=== PATIENT | female | born 1935 | race Caucasian/White ===

== ENCOUNTER 2018-04-18 11:45 | Inpatient (IN) | payer MEDICARE | END 2018-04-21 12:45 | disposition home or self-care (01) | LOC: ER 11:45 → PCU 3S 04-19 07:00 → ED HOLD 14:36 ==

== ENCOUNTER 2021-01-11 06:56 | Inpatient (IN) | payer MEDICARE ==
[2021-01-04 11:49] LABS: BASOPHILS # (AUTO) 0.1 X10'3 (0-0.2); BASOPHILS % (AUTO) 1.1 % (0-1); EOSINOPHILS # (AUTO) 0.2 X10'3 (0-0.9); LYMPHOCYTES # (AUTO) 1.5 X10'3 (1.1-4.8); LYMPHOCYTES % (AUTO) 30.6 % (21-51); MEAN CORPUSCULAR HEMOGLOBIN 31.8 PG (27.0-31.0); MEAN CORPUSCULAR HGB CONC 34.1 g/dL (33.0-36.5); MEAN CORPUSCULAR VOLUME 93.1 FL (78-98); MEAN PLATELET VOLUME 7.7 FL (7.4-10.4); MONOCYTES # (AUTO) 0.4 X10'3 (0-0.9); MONOCYTES % (AUTO) 8.1 % (2-12); NEUTROPHILS # (AUTO) 2.7 X10'3 (1.8-7.7); NEUTROPHILS % (AUTO) 56.2 % (42-75); PRE OP HEMATOCRIT 38.7 % (35.0-45.0); PRE OP HEMOGLOBIN 13.2 g/dL (12.0-16.0); PRE OP PLATELET COUNT 226 X10'3 (140-440); RED BLOOD COUNT 4.16 X10'6 (4.20-5.60); RED CELL DISTRIBUTION WIDTH 13.1 % (11.5-14.5)
[2021-01-04 12:08] LABS: ALBUMIN 3.5 G/DL (3.4-5.0); ALBUMIN/GLOBULIN RATIO 1.1 (1.1-1.5); ALKALINE PHOSPHATASE 70 IU/L (46-116); BLOOD UREA NITROGEN 11 MG/DL (7-18); BUN/CREATININE RATIO 16.9 (6.6-38.0); CALCIUM 8.3 MG/DL (8.5-10.1); CHLORIDE 104 MMOL/L (99-107); CREATININE 0.65 MG/DL (0.40-0.90); PRE OP ALT 13 U/L (30-65); PRE OP ANION GAP 3 (8-16); PRE OP AST 19 U/L (10-37); PRE OP BILIRUB, TOTAL 1.2 MG/DL (0.0-1.0); PRE OP GLUCOSE 92 MG/DL (70-104); PRE OP POTASSIUM 3.6 MMOL/L (3.4-5.1); PRE OP SODIUM 140 MMOL/L (135-145); TOTAL CARBON DIOXIDE 32.6 MMOL/L (24-32); TOTAL PROTEIN 6.8 G/DL (6.4-8.2); eGFR 87 ML/MIN
[2021-01-04 12:14] LABS: HEMOGLOBIN A1C 6.3 % (4.5-6.2)
[2021-01-04 12:19] LABS: PRE OP PROTIME 10.8 SECONDS (9.0-12.0)
[~2021-01-11] VITALS: Ht 152.4 cm; Wt 65.5 kg
[2021-01-11] VITALS (22 sets, daily range): BP systolic 90–166; BP diastolic 36–86
[2021-01-11] MEDS: ringers solution, lacted 1,000 ML IV SCH ×3 (06:33→14:47)
[~2021-01-11 06:56] MED LIST: ATOR20TA66 PO; HYDR-3964 PO; HYDROcodone/acetaminophen 10/325mg tab PO PRN; HYDROmorphone 1 mg/ml syringe IV PRN; HYDROmorphone inj. 0.5 MG/0.5 ML DISP.SYRIN IV PRN; LOSA100T57 PO; PARO10TA85 PO; SODIUM CHLORIDE IV ONE; TIMO5DRO4 EACHEYE; TRANEXAMIC ACID IV ONE; TRAZ-251 PO; VANCOMYCIN INJ 1000 MG in NORMAL SALINE 250ml IV.SOLN IV ONE; acetaminophen 325mg tablet PO ONE; bisacodyl 10mg suppository rectal RC PRN; ceFAZolin 2gm in dextrose, iso 50 ML IV ONE; celeCOXIB 100mg capsule PO ONE; diphenhydrAMINE 25mg capsule PO PRN; famotidine 20mg tablet PO ONE; gabapentin 300mg capsule PO ONE; magnesium hydroxide 30ml (MOM) UD suspension PO PRN; metoclopramide 5 mg/ml inj IV ONE; ondansetron/PF 4mg/2ml inj IV PRN; oxyCODONE SR 10mg (sust. release) tab -2 tabs (20mg) PO ONE
[2021-01-11] MEDS ORDERED: vancomycin 1,000mg inj ONE (07:57)
[2021-01-11] MEDS ORDERED: ROPIVAcaine 0.5% (5mg/ml) 30ml vial ONE (07:57)
[2021-01-11] MEDS ORDERED: ketorolac trometh. 30mg/ml inj. ONE (07:57)
[2021-01-11] MEDS ORDERED: epiNEPHrine 1 mg/ml inj ONE (07:57)
[2021-01-11] MEDS ORDERED: cloNIDine hcl/PF 100mcg/ml inj ONE (07:57)
[2021-01-11] MEDS ORDERED: vancomycin/NS 1 GM ADD-VANTAGE 250 ML IV SCH (08:00)
[2021-01-11] MEDS: ceFAZolin/D5W- 1GM premix 50 ML IV SCH ×2 (08:00→16:59)
[2021-01-11] MEDS: multivitamins, therapeutics tablet PO SCH (08:00)
[2021-01-11] MEDS ORDERED: fentaNYL/PF 50MCG/1 ML 2ML syringe ONE ×2 (08:15→09:14)
[2021-01-11] MEDS ORDERED: midazolam 1 mg/ML 2ml injection ONE (08:15)
[2021-01-11] MEDS ORDERED: ketamine 50mg/5ml syringe ONE (09:07)
[2021-01-11] MEDS ORDERED: HYDROmorphone/PF 0.2 MG/ML SYRINGE IV PRN (09:35)
[2021-01-11] MEDS ORDERED: morphine 2 MG/ML inj. syringe IV PRN (09:35)
[2021-01-11] MEDS ORDERED: ringers solution, lacted 1,000 ML IV SCH (09:35)
[2021-01-11] MEDS ORDERED: ondansetron/PF 4mg/2ml inj IV PRN (09:35)
[2021-01-11] MEDS ORDERED: glycopyrrolate 0.2mg/ml inj ONE (09:37)
[2021-01-11] MEDS ORDERED: neostigmine methylsulfate 1 MG/ML 10ml vial ONE (09:37)
[2021-01-11] MEDS ORDERED: ondansetron/PF 4mg/2ml inj ONE (09:38)
[2021-01-11] MEDS ORDERED: propofol inj 20 ML IV ONE (09:38)
[2021-01-11] MEDS ORDERED: rocuronium 10mg/ml inj IV ONE (09:38)
[2021-01-11] MEDS ORDERED: LIDOcaine 2% (20mg/ml) 5ml vial ONE (09:38)
--- NOTE | 2021-01-11 10:15 | NUR ---
Received from OR via , accompanied by Anesthesiologist and report given by Anesthesiolgist. PATIENT WAKING UP DENIES PAIN, V/S WNL, NEUROCHECKS INTACT, 20G RUEM F/C DRAINING CLEAR YELLOW URINE, SCD ON, МАРИНА DRESSING TO LEFT HIP CDI WITH IMMOBILIZER BRACE TO LLE.
--- NOTE | 2021-01-11 11:55 | NUR ---
PATIENT AWAKE AND RE ORIENTED X4, V/S WNL, NEUROCHECKS INTACT, 20G RUEM F/C DRAINING CLEAR YELLOW URINE, SCD ON, МАРИНА DRESSING TO LEFT HIP CDI WITH IMMOBILIZER BRACE TO LLE. PATIENT TAKEN TO [facility]A WITH ALL BELONGINGS AND REPORT GIVEN TO INOCENCIA TURPIN WHO HAS TAKEN OVER PATIENT CARE.
[2021-01-11] MEDS: gabapentin 300mg capsule PO SCH ×2 (13:00→21:00)
[2021-01-11] MEDS ORDERED: tranexamic acid inj. 650 MG in normal saline 100ml IV soln 100 ML IV ONE (13:15)
[2021-01-11] MEDS: potassium cl 20mEq in 1/2 NS 1,000 ML IV SCH ×3 (14:55→22:55)
--- NOTE | 2021-01-11 18:00 | NUR ---
Problems reprioritized. Patient report given, questions answered & plan of care reviewed with Julia TURPIN.
--- NOTE | 2021-01-11 18:56 | NUR ---
Patient in room [facility]. I have received report from Veronica TURPIN and had the opportunity to ask questions and assume patient care.
[2021-01-11] MEDS: timolol 0.5% ophthalmic solution 5ml bottle EACHEYE SCH (20:00)
[2021-01-11] MEDS: losartan 50mg tablet PO SCH (20:00)
[2021-01-11] MEDS: ascorbic acid 500mg tablet PO SCH (20:00)
[2021-01-11] MEDS: sennosides 8.6mg tablet PO SCH (21:00)
[2021-01-11] MEDS: traZODone 50mg tablet PO SCH (21:00)
[2021-01-11] MEDS: PARoxetine 10mg tablet PO SCH (21:00)
--- NOTE | 2021-01-11 21:00 | NUR ---
Pt has been sleepy since anesthesia from surgery, so kept NPO at this time due to being unable to assess swallow. Oral meds non admin for the time being. Pt responds to stimuli and vital signs are stable.
[2021-01-12] VITALS: BP 105/48
[2021-01-12] MEDS: potassium cl 20mEq in 1/2 NS 1,000 ML IV SCH ×3 (01:07→22:55)
[2021-01-12 06:02] LABS: BASOPHILS % (AUTO) 0.3 % (0-1); EOSINOPHILS % (AUTO) 0.5 % (0-6); HEMATOCRIT 36.1 % (35.0-45.0); HEMOGLOBIN 11.9 g/dl (12.0-16.0); LYMPHOCYTES # (AUTO) 0.7 X10'3 (1.1-4.8); LYMPHOCYTES % (AUTO) 7.4 % (21-51); MEAN CORPUSCULAR HEMOGLOBIN 31.6 PG (27.0-31.0); MEAN CORPUSCULAR HGB CONC 33.1 g/dL (33.0-36.5); MEAN CORPUSCULAR VOLUME 95.4 FL (78-98); MEAN PLATELET VOLUME 8.4 FL (7.4-10.4); MONOCYTES # (AUTO) 0.8 X10'3 (0-0.9); MONOCYTES % (AUTO) 8.1 % (2-12); NEUTROPHILS # (AUTO) 8.2 X10'3 (1.8-7.7); NEUTROPHILS % (AUTO) 83.7 % (42-75); PLATELET COUNT 172 X10'3 (140-440); RED BLOOD COUNT 3.78 X10'6 (4.20-5.60); RED CELL DISTRIBUTION WIDTH 13.4 % (11.5-14.5); WHITE BLOOD COUNT 9.8 X10'3 (4.5-11.0)
--- NOTE | 2021-01-12 06:34 | NUR ---
Problems reprioritized. Patient report given, questions answered & plan of care reviewed with Jo-Ann TURPIN.
[2021-01-12 07:02] LABS: ANION GAP 6 (8-16); CHLORIDE 104 MMOL/L (99-107); POTASSIUM 4.3 MMOL/L (3.5-5.1); SODIUM 140 MMOL/L (135-145)
[2021-01-12] MEDS: timolol 0.5% ophthalmic solution 5ml bottle EACHEYE SCH ×2 (08:00→20:13)
[2021-01-12] MEDS: losartan 50mg tablet PO SCH ×2 (08:00→20:09)
[2021-01-12] MEDS: ascorbic acid 500mg tablet PO SCH ×2 (09:17→20:10)
[2021-01-12] MEDS: aspirin 325mg tablet PO SCH (09:17)
[2021-01-12] MEDS: gabapentin 300mg capsule PO SCH ×3 (09:17→20:11)
[2021-01-12] MEDS: multivitamins, therapeutics tablet PO SCH (09:17)
[2021-01-12] MEDS: atorvastatin 20mg tablet PO SCH (09:17)
[2021-01-12] MEDS: acetaminophen 325mg tablet PO PRN ×2 (10:17→20:14)
[2021-01-12] MEDS ORDERED: normal saline 1000ml 1,000 ML IV ONE (12:35)
--- NOTE | 2021-01-12 13:48 | NUR ---
Joint Surgery Consult: Pt admit s/p L hip surgery this admit per EMR. Pt sleeping during RD visit noted to be sleepy post-op per EMR. Written high protein ed w/ RD contact information left at bedside. Addendum: 01/12/21 at [address] Amended: Links added.
--- NOTE | 2021-01-12 18:30 | NUR ---
Patient in room [facility]. I have received report from Jo-Ann TURPIN and had the opportunity to ask questions and assume patient care.
[2021-01-12 20:00] VITALS: BP 132/43
[2021-01-12] MEDS: celeCOXIB 100mg capsule PO SCH (20:07)
[2021-01-12] MEDS: traZODone 50mg tablet PO SCH (20:10)
[2021-01-12] MEDS: PARoxetine 10mg tablet PO SCH (20:11)
[2021-01-12] MEDS: sennosides 8.6mg tablet PO SCH (20:12)
[2021-01-13] VITALS: BP 107/49
--- NOTE | 2021-01-13 06:10 | NUR ---
Problems reprioritized. Patient report given, questions answered & plan of care reviewed with Jo-Ann TURPIN.
[2021-01-13 08:59] LABS: BASOPHILS % (AUTO) 0.4 % (0-1); EOSINOPHILS # (AUTO) 0.3 X10'3 (0-0.9); EOSINOPHILS % (AUTO) 4.3 % (0-6); HEMATOCRIT 31.6 % (35.0-45.0); HEMOGLOBIN 10.7 g/dl (12.0-16.0); LYMPHOCYTES # (AUTO) 1.1 X10'3 (1.1-4.8); LYMPHOCYTES % (AUTO) 14.5 % (21-51); MEAN CORPUSCULAR HEMOGLOBIN 31.8 PG (27.0-31.0); MEAN CORPUSCULAR HGB CONC 33.8 g/dL (33.0-36.5); MEAN CORPUSCULAR VOLUME 94.3 FL (78-98); MEAN PLATELET VOLUME 8.6 FL (7.4-10.4); MONOCYTES # (AUTO) 0.7 X10'3 (0-0.9); MONOCYTES % (AUTO) 9.9 % (2-12); NEUTROPHILS # (AUTO) 5.3 X10'3 (1.8-7.7); NEUTROPHILS % (AUTO) 70.9 % (42-75); PLATELET COUNT 143 X10'3 (140-440); RED BLOOD COUNT 3.35 X10'6 (4.20-5.60); RED CELL DISTRIBUTION WIDTH 12.9 % (11.5-14.5); WHITE BLOOD COUNT 7.4 X10'3 (4.5-11.0)
[2021-01-13] MEDS: timolol 0.5% ophthalmic solution 5ml bottle EACHEYE SCH (09:04)
[2021-01-13] MEDS: aspirin 325mg tablet PO SCH (09:06)
[2021-01-13 09:07] VITALS: BP_SYST 153
[2021-01-13] MEDS: losartan 50mg tablet PO SCH (09:07)
[2021-01-13] MEDS: ascorbic acid 500mg tablet PO SCH (09:07)
[2021-01-13] MEDS: multivitamins, therapeutics tablet PO SCH (09:07)
[2021-01-13] MEDS: atorvastatin 20mg tablet PO SCH (09:07)
[2021-01-13] MEDS: gabapentin 300mg capsule PO SCH ×2 (09:07→13:47)
[2021-01-13] MEDS: celeCOXIB 100mg capsule PO SCH (09:08)
== END 2021-01-13 14:59 | disposition home or self-care (01) | DRG 468 ==
LOC: PAS 06:56 → SUR 3N 06:56 → PAS 09:59 → UNDOADMIN 10:00 → SUR 3N 10:00 → UNDODISIN 01-13 14:59
PROVIDERS: ADMIT Orthopaedic Surgery; ATTEND Orthopaedic Surgery
PROC: 0SP90JZ Removal of Synthetic Substitute from Right Hip Joint, Open Approach (ICD-10-PCS; 2021-01-11)
PROC: 0SR906Z Replacement of Right Hip Joint with Oxidized Zirconium on Polyethylene Synthetic Substitute, Open Approach (ICD-10-PCS; principal; 2021-01-11 08:10)
DX: M16.12 Unilateral primary osteoarthritis, left hip (principal); M25.851 Other specified joint disorders, right hip; Z20.822 Contact with and (suspected) exposure to COVID-19; M48.061 Spinal stenosis, lumbar region without neurogenic claudication; M47.816 Spondylosis without myelopathy or radiculopathy, lumbar region; F41.9 Anxiety disorder, unspecified; M77.9 Enthesopathy, unspecified; Z90.49 Acquired absence of other specified parts of digestive tract; Z90.710 Acquired absence of both cervix and uterus
CPT/HCPCS: 36415; 72170; 80051; 80053; 82948; 83036; 85025; 85610; 85730; 86885; 86900; 86901; 87081; 97110; 97530; A7000; A9272; C1758; C1776; G0378; J0171; J0690; J0735; J1170; J1885; J2001; J2250; J2270; J2405; J2704; J2710; J2765; J2795; J3010; J3370; J3480; J3490; J7030; J7120; U0003; U0005

== ENCOUNTER 2021-01-23 14:17 | Emergency (ER) | payer MEDICARE ==
[~2021-01-23] VITALS: Ht 152.4 cm; Wt 64.0 kg
[~2021-01-23 14:17] MED LIST changes: -HYDROcodone/acetaminophen 10/325mg tab PO PRN; -HYDROmorphone 1 mg/ml syringe IV PRN; -HYDROmorphone inj. 0.5 MG/0.5 ML DISP.SYRIN IV PRN; -SODIUM CHLORIDE IV ONE; -TRANEXAMIC ACID IV ONE; -VANCOMYCIN INJ 1000 MG in NORMAL SALINE 250ml IV.SOLN IV ONE; -acetaminophen 325mg tablet PO ONE; -bisacodyl 10mg suppository rectal RC PRN; -ceFAZolin 2gm in dextrose, iso 50 ML IV ONE; -celeCOXIB 100mg capsule PO ONE; -diphenhydrAMINE 25mg capsule PO PRN; -famotidine 20mg tablet PO ONE; -gabapentin 300mg capsule PO ONE; -magnesium hydroxide 30ml (MOM) UD suspension PO PRN; -metoclopramide 5 mg/ml inj IV ONE; -ondansetron/PF 4mg/2ml inj IV PRN; -oxyCODONE SR 10mg (sust. release) tab -2 tabs (20mg) PO ONE
[2021-01-23 15:10] LABS: BASOPHILS % (AUTO) 0.7 % (0-1); EOSINOPHILS # (AUTO) 0.2 X10'3 (0-0.9); EOSINOPHILS % (AUTO) 3.1 % (0-6); HEMATOCRIT 34.9 % (35.0-45.0); HEMOGLOBIN 11.8 g/dl (12.0-16.0); LYMPHOCYTES # (AUTO) 1.1 X10'3 (1.1-4.8); LYMPHOCYTES % (AUTO) 15.6 % (21-51); MEAN CORPUSCULAR HEMOGLOBIN 31.6 PG (27.0-31.0); MEAN CORPUSCULAR HGB CONC 33.8 g/dL (33.0-36.5); MEAN CORPUSCULAR VOLUME 93.6 FL (78-98); MEAN PLATELET VOLUME 7.1 FL (7.4-10.4); MONOCYTES # (AUTO) 0.6 X10'3 (0-0.9); NEUTROPHILS % (AUTO) 72.6 % (42-75); PLATELET COUNT 278 X10'3 (140-440); RED BLOOD COUNT 3.73 X10'6 (4.20-5.60); RED CELL DISTRIBUTION WIDTH 13.2 % (11.5-14.5); WHITE BLOOD COUNT 6.9 X10'3 (4.5-11.0)
[2021-01-23 15:12] LABS: PARTIAL THROMBOPLASTIN TIME 25 SECONDS (22-32)
[2021-01-23 15:14] LABS: ALANINE AMINOTRANSFERASE 15 U/L (12-78); ALBUMIN 3.3 G/DL (3.4-5.0); ALKALINE PHOSPHATASE 85 IU/L (46-116); ANION GAP 8 (8-16); ASPARTATE AMINO TRANSFERASE 19 U/L (10-37); BILIRUBIN,TOTAL 0.7 MG/DL (0.1-1.0); BLOOD UREA NITROGEN 8 MG/DL (7-18); BUN/CREATININE RATIO 11.3 (6.6-38.0); CALCIUM 8.8 MG/DL (8.5-10.1); CHLORIDE 100 MMOL/L (99-107); CREATININE 0.71 MG/DL (0.40-0.90); GLUCOSE 105 MG/DL (70-104); POTASSIUM 3.5 MMOL/L (3.5-5.1); SODIUM 140 MMOL/L (135-145); TOTAL CARBON DIOXIDE 31.7 MMOL/L (24-32); TOTAL PROTEIN 6.7 G/DL (6.4-8.2); eGFR 78 ML/MIN
[2021-01-23] MEDS ORDERED: VALA100031 PO (16:13)
[2021-01-23] MEDS ORDERED: HYDROcodone/acetaminophen 5mg/325mg tablet PO ONE (16:40)
[2021-01-23] MEDS ORDERED: iohexol 350MG/ML 100ml bottle IV ONE (16:44)
[2021-01-23 18:55] VITALS: BP 132/98
== END 2021-01-23 18:57 | disposition home or self-care (01) ==
LOC: ER 14:17
DX: S16.1XXA Strain of muscle, fascia and tendon at neck level, initial encounter (principal); B02.9 Zoster without complications; E78.00 Pure hypercholesterolemia, unspecified; G89.29 Other chronic pain; Z95.5 Presence of coronary angioplasty implant and graft; Z95.0 Presence of cardiac pacemaker; Z98.890 Other specified postprocedural states; Z79.899 Other long term (current) drug therapy; W19.XXXA Unspecified fall, initial encounter; Y93.89 Activity, other specified; Y92.89 Other specified places as the place of occurrence of the external cause; Y99.8 Other external cause status
CPT/HCPCS: 36415; 70450; 70498; 72125; 80053; 85025; 85610; 85730; 99285; Q9967

== ENCOUNTER 2023-12-04 08:57 | Emergency (ER) | payer MEDICARE ==
[~2023-12-04] VITALS: Ht 152.4 cm; Wt 70.0 kg
[~2023-12-04 08:57] MED LIST changes: -LOSA100T57 PO; +LOSA100T58 PO; +PARO-153 PO; -PARO10TA85 PO; +TIMO5DRO15 EACHEYE; -TIMO5DRO4 EACHEYE; +VALA100031 PO
[2023-12-04] MEDS ORDERED: COMP1EAC (10:21)
[2023-12-04 10:39] VITALS: BP 170/68; PULSE 60; O2SAT 98
[2023-12-04 10:47] VITALS: RESP 16
[2023-12-04] MEDS: HYDROcodone/acetaminophen 5mg/325mg tablet PO ONE (10:47)
== END 2023-12-04 10:56 | disposition home or self-care (01) ==
LOC: ER 08:57
DX: R60.0 Localized edema (principal); E78.00 Pure hypercholesterolemia, unspecified; G89.29 Other chronic pain; M54.9 Dorsalgia, unspecified; F41.9 Anxiety disorder, unspecified; Z79.899 Other long term (current) drug therapy; Z79.2 Long term (current) use of antibiotics; Z90.710 Acquired absence of both cervix and uterus; Z98.890 Other specified postprocedural states; Z95.0 Presence of cardiac pacemaker
CPT/HCPCS: 93971; 99284

== ENCOUNTER 2024-03-25 06:44 | Emergency (ER) | payer MEDICARE ==
[~2024-03-25] VITALS: Ht 149.9 cm; Wt 68.2 kg
[~2024-03-25 06:44] MED LIST changes: +COMP1EAC
[2024-03-25 06:47] VITALS: TEMP 97.8
[2024-03-25 08:19] LABS: BASOPHILS # (AUTO) 0.1 X10'3 (0-0.2); BASOPHILS % (AUTO) 0.8 % (0-1); EOSINOPHILS # (AUTO) 0.3 X10'3 (0-0.9); EOSINOPHILS % (AUTO) 5.2 % (0-6); HEMATOCRIT 40.9 % (35.0-45.0); HEMOGLOBIN 13.8 g/dl (12.0-16.0); LYMPHOCYTES # (AUTO) 1.3 X10'3 (1.1-4.8); LYMPHOCYTES % (AUTO) 20.7 % (21-51); MEAN CORPUSCULAR HEMOGLOBIN 31.8 PG (27.0-31.0); MEAN CORPUSCULAR HGB CONC 33.8 g/dL (33.0-36.5); MEAN CORPUSCULAR VOLUME 94.1 FL (78-98); MONOCYTES # (AUTO) 0.7 X10'3 (0-0.9); NEUTROPHILS # (AUTO) 4.1 X10'3 (1.8-7.7); NEUTROPHILS % (AUTO) 63.3 % (42-75); PLATELET COUNT 203 X10'3 (140-440); RED BLOOD COUNT 4.34 X10'6 (4.20-5.60); RED CELL DISTRIBUTION WIDTH 14.1 % (11.5-14.5); WHITE BLOOD COUNT 6.5 X10'3 (4.5-11.0)
[2024-03-25 08:30] LABS: ALANINE AMINOTRANSFERASE 10 U/L (12-78); ALBUMIN 3.6 G/DL (3.4-5.0); ALBUMIN/GLOBULIN RATIO 1.1 (1.1-1.5); ALKALINE PHOSPHATASE 75 IU/L (46-116); ANION GAP 7 (8-16); ASPARTATE AMINO TRANSFERASE 22 U/L (10-37); BILIRUBIN,TOTAL 0.8 MG/DL (0.1-1.0); BLOOD UREA NITROGEN 9 MG/DL (7-18); BUN/CREATININE RATIO 12.9 (10.0-20.0); CALCIUM 9.1 MG/DL (8.5-10.1); CHLORIDE 103 MMOL/L (99-107); GLUCOSE 101 MG/DL (70-104); POTASSIUM 3.3 MMOL/L (3.5-5.1); SODIUM 141 MMOL/L (135-145); TOTAL CARBON DIOXIDE 31.5 MMOL/L (24-32); TOTAL PROTEIN 6.9 G/DL (6.4-8.2); eCRCL 37 ML/MIN; eGFR 79 ML/MIN
[2024-03-25 08:38] LABS: PRO BRAIN NATRIURETIC PEPTIDE 900 PG/ML (0-450)
[2024-03-25 09:02] LABS: C-REACTIVE PROTEIN < 0.05 MG/DL (0.0-0.5)
[2024-03-25] MEDS ORDERED: iohexol 300mg/ml 100ml inj. ONE (09:02)
[2024-03-25] MEDS ORDERED: CYCL-1 PO (11:07)
[2024-03-25 11:23] VITALS: BP 189/88
[2024-03-25] MEDS: ketorolac trometh 15mg/ml vial 15 MG/ML ML IV ONE (11:26)
[2024-03-25 11:30] VITALS: PULSE 62; RESP 18; O2SAT 95
== END 2024-03-25 11:40 | disposition home or self-care (01) ==
LOC: ER 06:45
DX: M54.12 Radiculopathy, cervical region (principal); E78.00 Pure hypercholesterolemia, unspecified; G89.29 Other chronic pain; I10 Essential (primary) hypertension; Z79.899 Other long term (current) drug therapy; Z90.710 Acquired absence of both cervix and uterus; Z95.0 Presence of cardiac pacemaker
CPT/HCPCS: 36415; 71045; 71260; 72125; 80053; 83880; 84484; 85025; 85651; 86140; 93005; 96374; 99285; J1885; Q9967